=== PATIENT | female | born 1990 | race Caucasian/White ===

== ENCOUNTER 2018-07-14 17:35 | Emergency (ER) | payer SELFPAY ==
[~2018-07-14] VITALS: Ht 162.6 cm; Wt 63.5 kg
[2018-07-14 18:30] VITALS: BP 144/111
[2018-07-14] MEDS ORDERED: LORazepam 1 MG TABLET PO ONE (19:00)
[2018-07-14] MEDS ORDERED: methylPREDNISolone ACETATE 40 MG/ML VIAL. IM ONE (19:30)
--- NOTE | 2018-07-14 19:35 | PHYS DOC ---
Past Medical History Past Medical History: Anxiety Additional Past Medical Histor: Interstitial Cystitis Past Surgical History: Other Additional Past Surgical Histo: D&C Alcohol Use: Occasionally Drug Use: Marijuana Adult General Chief Complaint Chief Complaint: SKIN RASH/ABSCESS [facility] HPI Patient is a 28 year old female who presents with a skin rash. The patient was recently released from [facility]. She states that she had been sober for 100 days. She was due to go to rehabilitation when [facility] was [facility] she shot up methamphetamine. She states she last shot up 2 days ago. The patient is extremely agitated in the exam room. She has a reddened, itchy rash to her bilateral upper extremities and torso. Review of Systems Review of Systems Constitutional: Denies fever or chills [] Eyes: Denies change in visual acuity, redness, or eye pain [] HENT: Denies nasal congestion or sore throat [] Respiratory: Denies cough or shortness of breath [] Cardiovascular: No additional information not addressed in HPI [] GI: Denies abdominal pain, nausea, vomiting, bloody stools or diarrhea [] : Denies dysuria or hematuria [] Musculoskeletal: Denies back pain or joint pain [] Integument: See history of present illness Neurologic: Denies headache, focal weakness or sensory changes [] Endocrine: Denies polyuria or polydipsia [] All other systems were reviewed and found to be within normal limits, except as documented in this note. Current Medications Current Medications Current Medications Medications (Trade) Dose Ordered Sig/Brett Start Time Stop Time Status Last Admin Dose Admin Dexamethasone (Decadron) 4 mg [id number] 07/15/18 08:00 Lorazepam (Ativan) 1 mg 1X ONCE 07/14/18 19:00 07/14/18 19:01 DC Methylprednisolone Acetate (DEPO-Medrol 40MG VIAL) 40 mg 1X ONCE 07/14/18 19:30 07/14/18 19:31 DC Allergies Allergies Allergies Coded Allergies Type Severity Reaction Last Updated Verified No Known Drug Allergies 07/12/15 No Physical Exam Physical Exam Constitutional: Well developed, well nourished, no acute distress, non-toxic appearance. [] Cardiovascular:Heart rate regular rhythm, no murmur [] Lungs & Thorax: Bilateral breath sounds clear to auscultation [] Abdomen: Bowel sounds normal, soft, no tenderness, no masses, no pulsatile masses. [] Skin: Erythema to bilateral forearms and torso, injection sites do not appear infected Back: No tenderness, no CVA tenderness. [] Extremities: No tenderness, no cyanosis, no clubbing, ROM intact, no edema. [] Neurologic: Alert and oriented X 3, normal motor function, normal sensory function, no focal deficits noted. [] Psychologic: She is agitated and anxious EKG EKG [] Radiology/Procedures Radiology/Procedures [] Course & Med Decision Making Course & Med Decision Making Pertinent Labs and Imaging studies reviewed. (See chart for details) []The patient was given Ativan in the emergency Department as well as a shot of Solu-Medrol. She is to follow-up with her primary care provider for recheck within 2 days and report to rehabilitation. Dragon Disclaimer Dragon Disclaimer This electronic medical record was generated, in whole or in part, using a voice recognition dictation system. Departure Departure Impression: Primary Impression: Methamphetamine abuse Additional Impression: Rash Disposition: 01 HOME, SELF-CARE Condition: STABLE Referrals: NO PCP (PCP) Patient Instructions: Methamphetamine Abuse, Complications, Rash Additional Instructions: You should take Benadryl scheduled to control itching. Do not use methamphetamine as it will cause severe negative side effects up to and including . I encourage you to go to rehabilitation. If worsening return to the emergency department. Problem Qualifiers CINDY MIRANDA APRN Jul 14, 2018 19:35
[2018-07-15] MEDS ORDERED: DEXAMETHASONE 4 MG TABLET PO SCH (08:00)
== END 2018-07-14 19:45 | disposition home or self-care (01) ==
LOC: ER 17:35
DX: F15.10 Other stimulant abuse, uncomplicated (principal); L53.8 Other specified erythematous conditions; R45.1 Restlessness and agitation; F41.9 Anxiety disorder, unspecified
CPT/HCPCS: 96372; 99283; J1030